=== PATIENT | male | born 1955 | race African-American/Black ===

== ENCOUNTER 2023-09-08 13:07 | Emergency (ER) | payer MEDICARE, BC ==
[~2023-09-08] VITALS: Ht 180.3 cm; Wt 94.4 kg
[2023-09-08 13:14] VITALS: BP 136/74; PULSE 61; TEMP 97.1; O2SAT 100
[2023-09-08 13:59] LABS: BASOPHILS % (AUTO) 0.8 % (0-1); EOSINOPHILS # (AUTO) 0.2 X10'3 (0-0.9); EOSINOPHILS % (AUTO) 3.9 % (0-6); HEMATOCRIT 39.2 % (42.0-52.0); LYMPHOCYTES # (AUTO) 1.9 X10'3 (1.1-4.8); LYMPHOCYTES % (AUTO) 36.6 % (21-51); MEAN CORPUSCULAR HEMOGLOBIN 26.2 PG (27.0-31.0); MEAN CORPUSCULAR HGB CONC 33.1 g/dL (33.0-36.5); MEAN CORPUSCULAR VOLUME 79.2 FL (78-98); MEAN PLATELET VOLUME 7.4 FL (7.4-10.4); MONOCYTES # (AUTO) 0.5 X10'3 (0-0.9); MONOCYTES % (AUTO) 9.7 % (2-12); NEUTROPHILS # (AUTO) 2.6 X10'3 (1.8-7.7); PLATELET COUNT 263 X10'3 (140-440); RED BLOOD COUNT 4.95 X10'6 (4.70-6.10); RED CELL DISTRIBUTION WIDTH 13.5 % (11.5-14.5); WHITE BLOOD COUNT 5.3 X10'3 (4.5-11.0)
[2023-09-08 14:24] LABS: ALANINE AMINOTRANSFERASE 51 U/L (12-78); ALBUMIN 4.1 G/DL (3.4-5.0); ALBUMIN/GLOBULIN RATIO 1.2 (1.1-1.5); ALKALINE PHOSPHATASE 65 IU/L (46-116); ANION GAP 4 (8-16); ASPARTATE AMINO TRANSFERASE 19 U/L (10-37); BILIRUBIN,TOTAL 0.5 MG/DL (0.1-1.0); BLOOD UREA NITROGEN 16 MG/DL (7-18); BUN/CREATININE RATIO 18.6 (10.0-20.0); CALCIUM 8.9 MG/DL (8.5-10.1); CHLORIDE 104 MMOL/L (99-107); CREATININE 0.86 MG/DL (0.60-1.10); GLUCOSE 87 MG/DL (70-104); LIPASE 19 U/L (16-77); POTASSIUM 4.3 MMOL/L (3.5-5.1); SODIUM 137 MMOL/L (135-145); TOTAL CARBON DIOXIDE 28.9 MMOL/L (24-32); TOTAL PROTEIN 7.6 G/DL (6.4-8.2); eCRCL 88 ML/MIN; eGFR 88 ML/MIN
[2023-09-08 14:29] LABS: BILIRUBIN,URINE NEGATIVE (Neg); CLARITY,URINE SLIGHTLY CLOUDY (Clear); COLOR,URINE STRAW (Yellow); GLUCOSE, URINE NEGATIVE (Neg); KETONES,URINE NEGATIVE (Neg); LEUKOCYTE ESTERASE ,URINE TRACE (Neg); NITRITES, URINE NEGATIVE (Neg); OCCULT BLOOD,URINE LARGE (Neg); PROTEIN,URINE NEGATIVE (Neg); UROBILINOGEN,URINE 0.2 E.U/dL (0.2-1.0)
[2023-09-08 14:31] LABS: UA COLLECTION TYPE NON-SPECIFIED
[2023-09-08 14:38] LABS: BACTERIA,URINE FEW /HPF (Neg); MUCUS STRANDS NONE SEEN /LPF (Neg); RBC,URINE 20-50 /HPF (0-2); RENAL CELLS, URINE FEW /HPF; SQUAMOUS EPITHELIAL CELL,UR FEW /LPF (FEW)
[2023-09-08 14:39] LABS: WBC CLUMPS,URINE FEW /HPF (NEGATIVE)
[2023-09-08 15:21] LABS: APTT 25 SECONDS (22-32); INR 1.2 INR
[2023-09-08] MEDS: ketorolac trometh. 30mg/ml inj. IM ONE (16:29)
[2023-09-08] MEDS: ondansetron 4mg rapidly disintigrating tab PO ONE (16:30)
[2023-09-08] MEDS: CefTRIAXone 1000mg IM Kit (w/lidocaine diluent) IM ONE (16:30)
[2023-09-08] MEDS: HYDROcodone/acetaminophen 5mg/325mg tablet PO ONE (16:30)
[2023-09-08 16:36] VITALS: RESP 16
== END 2023-09-08 16:38 | disposition home or self-care (01) ==
LOC: ER 13:08
DX: N39.0 Urinary tract infection, site not specified (principal); R30.0 Dysuria; R10.9 Unspecified abdominal pain
CPT/HCPCS: 36415; 74176; 80053; 81001; 83690; 85025; 85610; 85730; 87088; 96372; 99285; J0696; J1885

== ENCOUNTER 2023-11-21 16:11 | Emergency (ER) | payer MEDICARE, BC ==
[~2023-11-21] VITALS: Ht 180.3 cm; Wt 90.9 kg
[2023-11-21 16:47] VITALS: BP 144/81; PULSE 76; TEMP 96.4; O2SAT 99
[2023-11-21 18:27] VITALS: RESP 18
== END 2023-11-21 18:29 | disposition home or self-care (01) ==
LOC: ER 16:12
DX: M25.552 Pain in left hip (principal)
CPT/HCPCS: 73502; 99283